=== PATIENT | male | born 2000 | race Caucasian/White ===

== ENCOUNTER 2022-10-31 08:35 | Emergency (ER) | payer OTHER ==
[2022-10-31 08:44] VITALS: BP 138/85; PULSE 98; RESP 16; TEMP 98.5; BMI 21.8
[2022-10-31] MEDS ORDERED: ONDANSETRON 4 MG/2 ML VIAL IVPUSH ONE (09:20)
[2022-10-31] MEDS ORDERED: ACETAMINOPHEN 500 MG TABLET (FP) PO ONE (09:20)
[2022-10-31] MEDS ORDERED: ONDANSETRON 4 MG/2 ML VIAL ONE (09:27)
[2022-10-31] MEDS ORDERED: ACETAMINOPHEN 500 MG TABLET (FP) ONE (09:29)
[2022-10-31 09:49] LABS: BASO % 1.1 % (0-2.0); HEMATOCRIT 45.8 % (35.4-49); HEMOGLOBIN 16.2 GM/dL (11.7-16.9); LYMPH % 46.9 % (8-40); MCH 29.9 pg (25.7-33.7); MCHC 35.3 g/dl (32.0-35.9); MEAN CELL VOLUME 84.8 fl (80-96); MONO % 9.3 % (3.8-10.2); NEUT % 41.7 % (42.8-82.8); PLATELET COUNT 231 10^3/uL (134-434); RBC 5.39 M/mm3 (4.00-5.60); RDW 12.6 % (11.9-15.9); WHITE BLOOD COUNT 3.7 K/mm3 (4.0-10.0)
[2022-10-31] MEDS ORDERED: SODIUM CHLORIDE 1,000 ML IV ONE (10:04)
[2022-10-31 10:09] LABS: POTASSIUM 3.7 mmol/L (3.5-5.1)
[2022-10-31 10:12] LABS: ALBUMIN 4.2 g/dl (3.4-5.0); BLOOD UREA NITROGEN 8.1 mg/dL (7-18); CALCIUM 9.2 mg/dL (8.5-10.1)
[2022-10-31 10:14] LABS: CREATININE 0.9 mg/dL (0.55-1.3)
[2022-10-31 10:16] LABS: TOT PROT 7.6 g/dl (6.4-8.2)
== END 2022-10-31 12:08 | disposition home or self-care (01) ==
LOC: JER 08:35
PROC: 3E033GC Introduction of Other Therapeutic Substance into Peripheral Vein, Percutaneous Approach (ICD-10-PCS; principal; 2022-10-31)
PROC: 3E0337Z Introduction of Electrolytic and Water Balance Substance into Peripheral Vein, Percutaneous Approach (ICD-10-PCS; 2022-10-31)
DX: R07.9 Chest pain, unspecified (principal); R53.1 Weakness; R51.9 Headache, unspecified; R09.89 Other specified symptoms and signs involving the circulatory and respiratory systems; R05.9 Cough, unspecified; R00.2 Palpitations; R10.13 Epigastric pain; M79.10 Myalgia, unspecified site; R11.0 Nausea; Z20.822 Contact with and (suspected) exposure to COVID-19
CPT/HCPCS: 0241U-QW; 36415; 71045-TC-FY; 80053; 83690; 84484; 85025; 87651; 93005; 93010; 99285-25